=== PATIENT | male | born 1970 | race Hispanic/Latino ===

== ENCOUNTER 2023-10-10 11:11 | Emergency (ER) | payer BC ==
[~2023-10-10] VITALS: Ht 172.7 cm; Wt 95.3 kg
[2023-10-10] MEDS: DiphenhydrAMINE HCL 50 MG/ML VIAL IM ONE (12:23)
[2023-10-10] MEDS: FAMOTIDINE 20MG TAB PO ONE (12:24)
[2023-10-10] MEDS: DEXAMETHASONE SOD PHOSPHATE 4 MG/ML 1ML VIAL IM ONE (12:24)
[2023-10-10] MEDS ORDERED: METH4TAB3 PO (12:38)
[2023-10-10] MEDS ORDERED: DIPH50 PO (12:38)
[2023-10-10 13:05] VITALS: BP 136/74; PULSE 68; RESP 18; O2SAT 98
== END 2023-10-10 13:12 | disposition home or self-care (01) ==
LOC: EDH 11:11
DX: T78.3XXA Angioneurotic edema, initial encounter (principal); E03.9 Hypothyroidism, unspecified
CPT/HCPCS: 99284; 96372 ×2; J1100; J1200